=== PATIENT | male | born 1975 | race Caucasian/White ===

== ENCOUNTER 2020-10-06 18:53 | Emergency (ER) | payer SELFPAY ==
[~2020-10-06] VITALS: Ht 177.8 cm; Wt 117.9 kg
[2020-10-06] MEDS ORDERED: ZESTRIL20 MG PO (19:15)
[2020-10-06] MEDS ORDERED: XARELTO1 EACH PO (21:53)
== END 2020-10-06 22:08 | disposition home or self-care (01) ==
LOC: ED 18:53
DX: I82.402 Acute embolism and thrombosis of unspecified deep veins of left lower extremity (principal); Z79.899 Other long term (current) drug therapy

== ENCOUNTER 2020-10-17 21:00 | Emergency (ER) | payer OTHER ==
[~2020-10-17] VITALS: Ht 177.8 cm; Wt 111.1 kg
[~2020-10-17 21:00] MED LIST: XARELTO1 EACH PO; ZESTRIL20 MG PO
== END 2020-10-17 23:25 | disposition home or self-care (01) ==
LOC: ED 21:00
DX: S96.912A Strain of unspecified muscle and tendon at ankle and foot level, left foot, initial encounter (principal); Z79.899 Other long term (current) drug therapy; X58.XXXA Exposure to other specified factors, initial encounter; Y93.89 Activity, other specified; Y92.89 Other specified places as the place of occurrence of the external cause; Y99.8 Other external cause status

== ENCOUNTER 2022-01-30 13:33 | Emergency (ER) | payer OTHER ==
[~2022-01-30] VITALS: Wt 111.1 kg
[2022-01-30] MEDS ORDERED: AMOX-CLAV 875-1 EACH PO (14:49)
[2022-01-30] MEDS ORDERED: CIPRODEX 0.3%-7.5 ML OT (14:49)
== END 2022-01-30 15:16 | disposition home or self-care (01) ==
LOC: ED 13:33
DX: H66.92 Otitis media, unspecified, left ear (principal); H60.92 Unspecified otitis externa, left ear; Z79.899 Other long term (current) drug therapy; Z90.49 Acquired absence of other specified parts of digestive tract

== ENCOUNTER → 2023-09-04 | Outpatient (CLI) | payer OTHER ==
[~2023-09-04] MED LIST changes: +AMOX-CLAV 875-1 EACH PO; +CIPRODEX 0.3%-7.5 ML OT
[2023-09-04 10:38] LABS: BASO # 0.1 10*3/uL (0.0-0.1); BASO % 0.6 % (0.0-1.0); EOS # 0.2 10*3/uL (0.0-0.4); EOS % 1.2 % (1.0-4.0); HEMATOCRIT 50.4 % (42.0-52.0); LYMPH # 3.9 10*3/uL (1.3-4.4); LYMPH % 31.9 % (27.0-41.0); MEAN CORPUSCULAR HGB 29.8 pg (27.0-31.0); MEAN CORPUSCULAR HGB CONC 33.9 g/dl (33.0-37.0); MEAN PLATELET VOLUME 10.5 fl (9.6-12.3); MONO # 0.6 10*3/uL (0.1-1.0); MONO % 4.6 % (3.0-9.0); NEUT # 7.5 10*3/uL (2.3-7.9); PLATELET COUNT AUTOMATED 251 10*3/uL (130-400); RED BLOOD COUNT 5.73 10*6/uL (4.50-5.90); WHITE BLOOD COUNT 12.3 10*3/uL (4.8-10.8)
[2023-09-04 11:08] LABS: URIC ACID 3.2 mg/dL (3.7-9.2)
[2023-09-04 13:22] LABS: BF LYMPHOCYTES 5 %; BF MACROPHAGES 4 %; BF NEUTROPHILS 91 %
[2023-09-05 10:08] LABS: ACID FAST SPEC PROCESSING Direct Inoculation (.)
== END | disposition home or self-care (01) ==
LOC: LAB 10:03
PROVIDERS: ATTEND Orthopaedic Surgery
DX: M25.461 Effusion, right knee (principal)

== ENCOUNTER 2024-08-02 05:55 | Emergency (ER) | payer OTHER ==
[~2024-08-02] VITALS: Ht 177.8 cm; Wt 97.5 kg
[2024-08-02] MEDS ORDERED: PREDNISONE20 M1 PO (06:33)
[2024-08-02] MEDS ORDERED: Ketorolac Tromethamine 60 MG/2 ML VIAL IM ONE (06:35)
== END 2024-08-02 06:37 | disposition home or self-care (01) ==
LOC: ED 05:55
DX: S20.212A Contusion of left front wall of thorax, initial encounter (principal); Z79.899 Other long term (current) drug therapy; W22.8XXA Striking against or struck by other objects, initial encounter; Y93.89 Activity, other specified; Y92.89 Other specified places as the place of occurrence of the external cause; Y99.8 Other external cause status